=== PATIENT | male | born 1980 | race Caucasian/White ===

== ENCOUNTER 2019-12-11 10:21 | Emergency (ER) | payer OTHER ==
[~2019-12-11] VITALS: Ht 180.3 cm; Wt 84.8 kg
== END 2019-12-11 13:26 | disposition home or self-care (01) ==
LOC: ER 10:21
DX: B33.8 Other specified viral diseases (principal); Z03.818 Encounter for observation for suspected exposure to other biological agents ruled out; R50.9 Fever, unspecified